=== PATIENT | female | born 1970 | race Caucasian/White ===

== ENCOUNTER 2018-01-07 16:43 | Emergency (ER) | payer SELFPAY ==
--- NOTE | 2018-01-07 16:59 | ED Physician Documentation ---
Sore Throat/Dental Pain - HISTORIAN Historian: patient - HPI Stated Complaint: dental pain broken tooth Chief Complaint: Dental Pain Onset: other (years ) Context: Fractured Tooth Associated Symptoms: mild. denies: fever, chills, sore throat, unable to swallow Worsened By: heat, cold Further Comments: yes (She states she needs to get to for dental work but she has to go to [place] first . She has no fever. She had a tooth break off two days ago . "I am eating Ibuprofen " is why she is not sure if she has had a fever. Pain is 10/10. She denies any headache. She does feel the pain is up to her ear . She has had many dental issues although has no dental coverage or PCP) - ROS CONST: no problems MS/SKIN/LYMPH: denies: rash - PAST HX Past History: dental surgery Other History: none Allergies/Adverse Reactions: Allergies Allergy/AdvReac Type Severity Reaction Status Date / Time codeine Allergy Verified 01/07/18 17:17 Home Medications: Ambulatory Orders Medication Instructions Recorded NK 01/07/18 - SOCIAL HX Smoking History: cigarettes - FAMILY HX Family History: No - REVIEWED ASSESSMENTS Nursing Assessment Reviewed: Yes Vitals Reviewed: Yes Dental Pain Physical Exam - EXAM General Appearance: no acute distress, alert Head/Neck: head nml inspection, no lymphadenopathy Eyes: eyes nml inspection Mouth/Throat: lips nml, pharynx nml, no drooling, no air way problems, gum swelling around teeth, widespread dental decay, other (broken teeth ) Ear/Nose: nml inspection Respiratory: no resp. distress, breath sounds nml CVS: reg. rate & rhythm, heart sounds nml Abdomen: soft, normal bowel sounds Extremities: non-tender Skin: warm/dry Neuro/Psych: none Discharge Clincal Impression: Pain, dental Referrals: Primary Doctor,No [Primary Care Provider] - 2 Days Comments: 1. Tramodol 50 mg take 1 by mouth every 12 hours as needed for pain 2. SEE A DENTIST 3. Follow up with PCP in 2-4 days 4. Return to ER for any concerns Condition: Stable Disposition: 01 HOME, SELF-CARE Decision to Admit: NO Date of Decison to Admit: 01/07/18 Decision Time: 17:20
[2018-01-07 17:03] VITALS: BP 148/86
[2018-01-07] MEDS ORDERED: KETOROLAC TROMETHAMINE 60 MG/2 ML VIAL IM ONE (17:07)
== END 2018-01-07 17:25 | disposition home or self-care (01) ==
LOC: ED 16:43
DX: K08.89 Other specified disorders of teeth and supporting structures (principal)
CPT/HCPCS: 96372; 99283; J1885